=== PATIENT | male | born 1965 | race Caucasian/White ===

== ENCOUNTER 2021-07-16 13:21 | Emergency (ER) | payer OTHER ==
[~2021-07-16] VITALS: Ht 165.1 cm; Wt 81.7 kg
[~2021-07-16 13:21] MED LIST: CORTISPORIN OTI10 ML OT; NORCO 5-325 TA1 EACH PO
[2021-07-16] MEDS ORDERED: DIABETES MED (13:32)
[2021-07-16 20:01] LABS: INFLUENZA A ANTIGEN Negative (Negative); INFLUENZA B ANTIGEN Negative (Negative)
[2021-07-16 20:37] LABS: ABSOLUTE MONOCYTES 0.5 thou/uL (0.0-1.2); ABSOLUTE NEUTROPHILS 2.4 thou/uL (1.6-8.1); BASOPHILS 0.8 %; EOSINOPHILS 0.1 %; HEMATOCRIT 46.5 % (42.0-52.0); LYMPHOCYTES 24.4 %; MCH 29.4 pg (26.0-34.0); MCHC 34.4 g/dL (28.0-37.0); MCV 85.6 fL (80.0-100.0); MPV 7.9 fl. (7.2-11.1); NUCLEATED RBCS 0 /100WBC; PLATELET COUNT* 271 thou/uL (150-400); POLYS 61.7 %; RBC 5.44 mil/uL (4.50-6.00); RDW-CV 13.3 % (10.5-14.5); WBC 3.9 thou/uL (4.0-11.0)
[2021-07-16 20:48] LABS: CALCIUM 8.7 mg/dL (8.5-10.1)
[2021-07-16 20:58] LABS: ALBUMIN 2.7 g/dL (3.4-5.0); TOTAL BILIRUBIN 0.7 mg/dL (<0.1-1.0); TOTAL PROTEIN 7.2 g/dL (6.4-8.2)
[2021-07-16] MEDS ORDERED: AUGMENTIN 875-1 EACH PO (21:19)
[2021-07-16] MEDS ORDERED: DECADRON6 MG PO (21:19)
[2021-07-16] MEDS ORDERED: PROAIR HFA8.5 GM INH (21:19)
[2021-07-16 21:53] VITALS: BP 123/70
--- NOTE | 2021-07-17 10:55 | EKG ---
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: [place] : 1965 Requested By: Kristen Jones Order Number: [id number] MD: Brad Miller Measurements Intervals Bryant Rate: 106 P: 58 FL: 117 QRS: 37 QRSD: 94 T: 47 QT: 330 QTc: 439 Interpretive Statements Sinus tachycardia Probable left atrial enlargement Baseline wander in lead(s) V2 No previous ECG available for comparison Electronically Signed On 07-17-2021 10:54:48 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
== END 2021-07-16 21:54 | disposition home or self-care (01) ==
LOC: M.ERS
PROVIDERS: Emergency Medicine
DX: U07.1 COVID-19 (principal); J12.82 Pneumonia due to coronavirus disease 2019